=== PATIENT | male | born 1970 | race Caucasian/White ===

== ENCOUNTER → 2021-09-11 14:44 | Outpatient (CLI) | payer OTHER, SELFPAY ==
--- NOTE | ~2021-09-11 | CT_ITS ---
EXAMINATION: CT sinus wo con DATE: 09/11/2021 15:01 INDICATION: Chronic sinusitis TECHNIQUE: Computed tomography (CT) of the paranasal sinuses was performed without intravenous contra st. The dose-length product was 290.62 mGy-cm. Automated exposure control and iterative reconstructio n technique were employed. COMPARISON: None FINDINGS: There is mucosal thickening of the frontal, ethmoid, sphenoid and maxillary sinuses with ne ar complete opacification of the left maxillary sinus. The ostiomeatal units are occluded by soft tis peyton. Rightward nasal septal deviation. Mastoids are pneumatized. IMPRESSION: 1. Moderate pansinusitis with occlusion of the ostiomeatal units. Reviewed, dictated and finalized at location B.
== END ==
PROVIDERS: PCP Internal Medicine; Visit Provider Otolaryngology
DX: J33.9 Nasal polyp, unspecified (principal); J34.2 Deviated nasal septum; J34.3 Hypertrophy of nasal turbinates; J34.89 Other specified disorders of nose and nasal sinuses; R09.81 Nasal congestion; J01.40 Acute pansinusitis, unspecified
CPT/HCPCS: 70486

== ENCOUNTER 2022-05-25 00:56 | Day surgery (SDC) | payer OTHER, SELFPAY ==
[2022-05-20 09:26] VITALS: BMI 27.1
--- NOTE | 2022-05-20 09:31 | PC.NURSE ---
Report to the Outpatient Waiting Room, entrance under the green pavilion located off [facility], at time 0800 on date 05/25/22. Planned Procedure Time: 1000. Time changes happen often and if your time is changed the preop area will call you the afternoon before. - You and your visitor will be asked to self-screen and do not enter if you have any COVID symptoms. - Only one visitor is requested with a max of two and NO children visitors are allowed at this time. - The patient visitor may be requested to leave or wait in car when not with patient due to distancing restrictions. - A mask is optional within the hospital at this time. Patients may have clear liquids (water, carbonated beverages, clear teas, apple juice) until 3 hours prior to surgery with a maximum of 20 ounces. - No food from midnight until time of surgery Take the following medications with a SIP of water the morning of surgery: NONE DO NOT STOP ANY OF YOUR OTHER PRESCRIPTION MEDICATIONS PRIOR TO SURGERY EXCEPT THE FOLLOWING Medications to discontinue per physician: N/A Date to take last dose: N/A Please no make-up, nail english, hairspray, perfume, deodorant, or body powder the day of surgery. No jewelry (including any body piercings) or valuables the day of surgery, leave them at home. Please take a shower or bath the night before, or the morning of, surgery with an antibacterial soap. Wear comfortable, loose fitting clothing. - Jewelry must be removed prior to entering the operating room. Rings and piercings that are not removed may be cut off. - The hospital will not accept responsibility for valuables. - Please leave all valuables, including medications, at home the day of surgery. If you are going home after surgery, a licensed gravel truck driver must drive you home. - NO public transportation without another adult if you receive anesthesia. - We recommend that an adult stay with you for 24 hours following discharge. - We also recommend that you do not drive, make important decision, drink alcoholic beverages, or take any drugs that were not prescribed by your health care provider for at least 24 hours after your discharge time. Follow any additional instructions given to you from your surgeon. If you or anyone in your household have experienced Covid symptoms in the past week, please notify your surgeon or the nurse liaison at the phone number below for possible testing. Telephone instructions given to PT - SAMM HWANG and asked if any additional questions and then verbalized understanding. Patient advised to call surgeon office or pre surgery nurse liaison [phone] if any additional questions.
--- NOTE | 2022-05-24 17:30 | P.HP_ITS ---
H&P: HPI History of Present Illness Date/Time: 05/24/22 17:30 Chief Complaint: nasal congestion nasal obstruction septal deviation turbinate hypertrophy chronic sinusitis Narrative: planned surgical procedure Review of Systems Review of Systems: All systems reviewed & are unremarkable except as noted in HPI and below [facility] Surgical History Surgical History History of wisdom tooth extraction Family History Family History Father Hypertension Heart murmur Leaky heart valve History of aortic valve replacement Grandparent ETOH abuse Cancer Grandparent Alcoholism Social History Social History Smoking status: Never smoker Alcohol intake: current Drinks per week: 9 Alcohol use details: beer Substance use: never Substance use type: does not use Living arrangements: with family Additional occupation/education comments: self employed, musician Gender identity (if verbalized by the patient): Male Sexual Orientation (if Verbalized by the Patient): Straight or Heterosexual Spiritual care concerns: No Meds Home Medications and Allergies Home Medications Medication Instructions Recorded Confirmed Type fluticasone propionate 93 See Rx Instructions .Route 04/23/22 05/20/22 Rx mcg/actuation breath activated .COMPLEX #16 grams aerosol (Xhance) prednisone 10 mg tablet 10 mg PO DAILY #3 tabs 05/21/22 Rx Allergies Allergy/AdvReac Type Severity Reaction Status Date / Time No Known Allergies Allergy Verified 05/20/22 09:25 Exam Narrative: septal deviation turbinate hypertrophy Assessment and Plan Assessment and plan (1) Hypertrophy of both inferior nasal turbinates: Code(s): J34.3 - Hypertrophy of nasal turbinates Status: Acute Assessment and Plan: ?OR for bilateral image guided endoscopic maxillary antrostomy total ethmoidectomy frontal sinusotomy endoscopic assisted septoplasty inferior turbinate? submucosal reduction with outfracture. risks discussed including brain brain damage CSF leak need for further procedures need for transfer to an academic center blindness change in vision septal perforation need for splint placement need for time off work need for time off school. Postoperative bleeding failure to resolve symptoms need for prolonged medication usage given the chronic sinus and polyps. Patient voiced understanding and agreed. (2) Nasal septal deviation: Code(s): J34.2 - Deviated nasal septum Status: Acute (3) Chronic sinusitis: Code(s): J32.9 - Chronic sinusitis, unspecified Status: Acute (4) Nasal obstruction: Code(s): J34.89 - Other specified disorders of nose and nasal sinuses Status: Acute (5) Chronic sinusitis: Code(s): J32.9 - Chronic sinusitis, unspecified Status: Acute (6) Nasal polyps: Code(s): J33.9 - Nasal polyp, unspecified Status: Acute (7) Chronic nasal congestion: Code(s): R09.81 - Nasal congestion Status: Acute
[2022-05-25] VITALS (8 sets, daily range): BP systolic 106–140; BP diastolic 64–90; PULSE 58–89; RESP 11–18; TEMP 36.6–36.9; O2SAT 97–100
--- NOTE | 2022-05-25 07:19 | WPDHPUPDATE1 ---
History and Physical Update Update Date/Time: 05/25/22 07:19 History and Physical has been reviewed, including an updated exam of the patient. There are NO changes in the patient's condition. Risks, benefits, and alternatives have been discussed and questions answered. Patient agrees to proceed with procedure.
[2022-05-25] MEDS: ACETAMINOPHEN 500 MG TABLET 1000 MG PO (08:08)
--- NOTE | 2022-05-25 08:26 | P.PNAN_ITS ---
Anes - Initial Pre Proc Eval Procedure: Operation Date: 05/25/22 09:00 Proposed Procedures p Image Guided Bilateral Maxillary Antrostomy, Left Side with Tissue Removal, Right Side without Tissue Removal, Bilateral Total Ethmoidectomy, Bilateral Frontal Sinusotomy, Bilateral Inferior Turbinectomy with Outfracture, Nasal Polypectomy - Francis England MD s Endoscopic Septoplasty - Francis England MD Date/Time: 05/25/22 08:26 Surgeon: Francis England MD Pre Op Diagnosis: Chronic Sinusitis Patient Data Age: 51 Gender: M Height: 1.82 m Weight: 88.75 kg Allergies Allergy/AdvReac Type Severity Reaction Status Date / Time No Known Allergies Allergy Verified 05/25/22 07:52 Home Medications Medication Instructions Recorded Confirmed Type fluticasone propionate 93 See Rx Instructions .Route 04/23/22 05/20/22 Rx mcg/actuation breath activated .COMPLEX #16 grams aerosol (Xhance) Patient hx anesthesia problems: none Family hx anesthesia problems: none Results Review: All pre-operative results and documents have been reviewed as part of the pre- operative evaluation. [facility] Past Medical History Medical History (Updated 05/25/22 @ 08:41 by Sorin Savage DO) Chronic sinusitis Surgical History Surgical History History of wisdom tooth extraction Family History Family History Father Hypertension Heart murmur Leaky heart valve History of aortic valve replacement Grandparent ETOH abuse Cancer Grandparent Alcoholism Social History Social History Smoking status: Never smoker Alcohol intake: current Drinks per week: 9 Alcohol use details: beer Substance use: never Substance use type: does not use Living arrangements: with family Additional occupation/education comments: self employed, musician Gender identity (if verbalized by the patient): Male Sexual Orientation (if Verbalized by the Patient): Straight or Heterosexual Spiritual care concerns: No Anes - Eval Final PreProcedure Day of Procedure 05/25/22 08:26 Patient weight: overweight Heart: regular rate and rhythm Lungs: clear to auscultation Airway: Mallampati scale class II Neurological: alert and oriented Last oral intake: >/= 8 hours ASA classification: II Emergent: no Anesthetic plan: proceed Anesthesia type and monitoring: general ETT and standard monitoring Results Review: All pre-operative results and documents have been reviewed as part of the pre- operative evaluation. Informed Consent: The patient's anesthetic plan and its attendant risks and benefits were discussed with the patient/family/POA. Questions were solicited and answers provided to the satisfaction of the patient/family/POA.
--- NOTE | 2022-05-25 08:41 | WPDHPUPDATE1 ---
History and Physical Update Update Date/Time: 05/25/22 08:41 add polypectomy
[2022-05-25] MEDS: ceFAZolin 2 GM/D5W 50 ML 2 GM/50 ML BAG IVPB (09:32)
[2022-05-25] MEDS: LIDO 1%/EPINEPHRINE 1:100,000 20 ML VIAL INFILTRATE (09:49)
[2022-05-25] MEDS: OXYMETAZOLINE HCL 0.05% NAS 15 ML BTL (*BKC) 1 SPRAY NASAL (09:49)
[2022-05-25] MEDS: MUPIROCIN 2% OINT 22 GM TUBE 1 APPLIC EACH NARE ×2 (10:58→11:39)
[2022-05-25] MEDS: TRIAMCINOLONE ACET INJ 40 MG/ML VIAL XX (11:41)
[2022-05-25] MEDS: LACTATED RINGERS 1,000 ML 30 ML IV CONT ×2 (12:47)
--- NOTE | 2022-05-25 13:01 | P.OP_ITS ---
Procedure Note - Detailed Date of Procedure 05/25/22 Pre-op Diagnosis Chronic Sinusitis Polyps nasal congestion nasal obstruction septal deviation turbinate hypertrophy Post-op Diagnosis Same Procedure Performed endoscopic assisted septoplasty turbinate reduction with outfracture image guided bilateral maxillary antrostomies endoscopic with tissue removal bilateral frontal sinusotomies bilateral total ethmoidectomies polypectomy middle turbinectomy right Surgeon Francis England MD Anesthesia General Indications see above Findings polyps throughout purulence in 3 of the operated sinuses both max is 1 of the ethmoids as well. Septum deviation corrected right turbinectomy had to be performed given that his adhesive as well as full of polyps Description of Procedure patient identified consent verified. Patient brought operating. Time-out performed. General anesthesia induced endotracheal tube secured. Patient prepped draped position 2nd time-out performed. Image guidance initiated confirmed. Afrin-soaked pledgets placed allowed to sit for 5 minutes then removed. 0 degree endoscope utilized 10 cc injected in the septum and inferior turbinates. Alden incision made left side of septum 15 blade nasal septal flaps elevated bilaterally 7 Danish suction after crossing over the osteotome. It deviated septum with Konrad forceps Kolton Sy forceps osteotome. Turbinates reduced inferior in the submucosal plane using microdebrider turbinate blade and outfractured with Maries elevator. Maxillary antrostomies performed with 70 degree scope 0 scope image guidance backbiter straight through cut a ball-tip probe as well as microdebrider with image guidance and a rad 60 microdebrider. Copious amounts of purulence and polyp the debris as well as cyst in bilateral max is. Total ethmoids performed with Kerrison image guidance and microdebrider purulence in the right posterior ethmoids. No remnant cells remained sphenoids were left intact frontal sinuses performed with 70 degree sc ope and frontal sinus instruments including Hosemann and Cobra. The right middle turbinate was it he states over the frontal outflow contributing to disease process decision was made to remove the right middle turbinate stump was Bovie suction electrocautery blood loss 100 cc. Patient tolerated the procedure well complications Nolasco splints were placed after closing the Sunsites incision the septum with 3 interrupted 5 0 fast gut sutures. Nolasco as were closed with 3-0 mattressed nylon suture. I performed all dictated portions procedure no complications care the patient given Anesthesiology. No plaque Nova pack placed bilateral middle meati I 1 cc of Kenalog injected between the 2. Estimated Blood Loss 100 Drains No Packing Yes (brandonk) Pathology None sent Complications No immediate complications Condition Stable Disposition PACU [facility] Billing Surgery - Charge Forward: Surgery Billing
== END 2022-05-25 15:00 | disposition home or self-care (01) ==
PROVIDERS: PCP Internal Medicine; Visit Provider Otolaryngology
PROC: (CPT 31267; principal; 2022-05-25 09:00)
PROC: (CPT 30520; 2022-05-25 09:00)
DX: J32.9 Chronic sinusitis, unspecified (principal); J34.3 Hypertrophy of nasal turbinates; J34.2 Deviated nasal septum; J34.89 Other specified disorders of nose and nasal sinuses; J33.9 Nasal polyp, unspecified; J33.8 Other polyp of sinus; R09.81 Nasal congestion
CPT/HCPCS: 31267; 31253; 61782; 30520; 30140; A9270; J0330; J0690; J1100; J2250; J2405; J2704; J3010; J3301; J7120

== ENCOUNTER 2022-09-14 00:22 | Day surgery (SDC) | payer OTHER, SELFPAY ==
[2022-08-30 09:44] VITALS: BMI 27.3
[2022-09-14 08:01] VITALS: BP 121/79; PULSE 62; RESP 18; TEMP 36.4; O2SAT 99; BMI 26.9
[2022-09-14] MEDS: LACTATED RINGERS 1,000 ML 150 ML IV CONT (08:15)
--- NOTE | 2022-09-14 08:49 | PM.HPGS ---
History of Present Illness History of Present Illness Consent: Risks, benefits, and alternatives have been discussed and questions answered. Patient agrees to proceed with procedure. Chief complaint: neoplasm screening Narrative: Inderjit Soliz is a 51 year old male Presents for screening colonoscopy. Patient's current weight appetite and bowel movements are normal. Patient denies abdominal pain. He has had no bleeding. Family history noncontributory. Review of Systems Review of Systems: Review of systems noncontributory. [facility] Past Medical History Medical History Chronic sinusitis Surgical History Surgical History History of wisdom tooth extraction Family History Family History Father Hypertension Heart murmur Leaky heart valve History of aortic valve replacement Grandparent ETOH abuse Cancer Grandparent Alcoholism Social History Social History Smoking status: Never smoker Alcohol intake: current Drinks per week: 9 Alcohol use details: socially Substance use: never Substance use type: does not use Lack of Transportation: No Lack of Food: Never True Current Housing: I Have Housing Concerned About Future Housing: No Difficulty Paying Gas/Electric Bills: No Difficulty Paying for Meds: No Currently Unemployed: No Education: High School Diploma/GED Difficulty w/ Childcare or Family Care: No Living arrangements: with family Additional occupation/education comments: self employed, musician Gender identity (if verbalized by the patient): Male Sexual Orientation (if Verbalized by the Patient): Straight or Heterosexual Spiritual care concerns: No Meds Home Medications and Allergies Home Medications Medication Instructions Recorded Confirmed Type mupirocin 2 % topical ointment 1 applic topical BID #22 grams 07/14/22 08/30/22 Rx fluticasone propionate 93 See Rx Instructions .Route 07/21/22 08/30/22 Rx mcg/actuation breath activated .COMPLEX #16 grams aerosol (Xhance) atorvastatin 20 mg tablet (Lipitor) 20 mg PO QHS #90 tabs 08/06/22 08/30/22 Rx Allergies Allergy/AdvReac Type Severity Reaction Status Date / Time No Known Allergies Allergy Verified 05/08/23 09:45 Vital Signs Vital Signs - 24 hr 09/14/22 08:01 Temperature 97.6 F Pulse Rate 62 Respiratory Rate 18 Blood Pressure 121/79 Pulse Oximetry 99 Oxygen Delivery Room Air Exam Narrative: Physical exam reveals patient be alert. Vital signs stable. HEENT exam is unremarkable. Patient is anicteric. Lungs are clear to auscultation and percussion. Heart is without murmur or extra sounds. Abdomen bowel sounds are present soft nontender with no organomegaly. Digital external rectal exam is normal. Assessment and Plan Assessment and plan (1) Screening for colon cancer: Code(s): Z12.11 - Encounter for screening for malignant neoplasm of colon Status: Acute Assessment and Plan: Patient presents today for screening colonoscopy. He appears to be at average risk for colon polyps. Further recommendations may be given after endoscopy.
[2022-09-14 09:24] VITALS: BP 129/91; PULSE 66; RESP 20; O2SAT 100
[2022-09-14 09:34] VITALS: BP 135/83; PULSE 60; RESP 20; O2SAT 100
[2022-09-14 09:44] VITALS: BP 134/91; PULSE 64; RESP 18; O2SAT 100
== END 2022-09-14 09:48 | disposition home or self-care (01) ==
PROVIDERS: PCP Internal Medicine; Visit Provider Internal Medicine Gastroenterology
PROC: 0DJD8ZZ Inspection of Lower Intestinal Tract, Via Natural or Artificial Opening Endoscopic (ICD-10-PCS; CPT 45378; principal; 2022-09-14 09:00)
DX: Z12.11 Encounter for screening for malignant neoplasm of colon (principal); D12.5 Benign neoplasm of sigmoid colon
CPT/HCPCS: 45385; 88305; J2704; J7120